=== PATIENT | female | born 1940 | race Caucasian/White ===

== ENCOUNTER 2019-02-21 06:36 | Inpatient (IN) | payer OTHER ==
[~2019-02-21] VITALS: Ht 160 cm; Wt 67.6 kg
[2019-02-21 06:43] VITALS: BP_SYST 160
[2019-02-21] MEDS ORDERED: ASPIRIN 81 MG TAB.CHEW PO ONE (07:00)
[2019-02-21] MEDS ORDERED: NITROGLYCERIN 0.4 MG TAB.SUBL SL ONE (07:00)
[2019-02-21] MEDS ORDERED: LISI-600 PO (07:03)
[2019-02-21] MEDS ORDERED: ALEN70TA3 PO (07:03)
[2019-02-21] MEDS ORDERED: VITA400C19 PO (07:03)
[2019-02-21] MEDS ORDERED: CALC200T47 PO (07:03)
[2019-02-21] MEDS ORDERED: AMLO2.5T2 PO (07:03)
[2019-02-21] MEDS ORDERED: VITD2000 PO (07:03)
[2019-02-21] MEDS ORDERED: HYDR25TA4 PO (07:03)
[2019-02-21 07:12] LABS: BASOPHILS # (AUTO) 0.1 K/uL (0.0-0.2); BASOPHILS % (AUTO) 0.5 % (0.0-2.0); EOSINOPHILS # (AUTO) 0.1 K/uL (0.0-0.4); EOSINOPHILS % (AUTO) 0.5 % (0.0-4.0); HEMATOCRIT 40.9 % (36-48); HEMOGLOBIN 13.6 g/dL (12.0-16.0); LYMPHOCYTES # (AUTO) 2.2 K/uL (1.0-5.5); LYMPHOCYTES % (AUTO) 18.8 % (20.5-51.5); MEAN CORPUSCULAR HEMOGLOBIN 30 pg (27-31); MEAN CORPUSCULAR HGB CONC 33 % (32-36); MEAN CORPUSCULAR VOLUME 89 fL (79.0-98.0); MONOCYTES # (AUTO) 1.1 K/uL (0.0-1.0); MONOCYTES % (AUTO) 9.2 % (1.7-9.3); NEUTROPHILS # (AUTO) 8.4 K/uL (1.8-7.7); PLATELET COUNT (AUTO) 253 K/uL (130-430); RED CELL DISTRIBUTION WIDTH 13.6 % (9.0-15.0); WHITE BLOOD COUNT (AUTO) 11.9 K/uL (4.8-10.8)
[2019-02-21 07:20] LABS: ANION GAP 10 (5-15); CALCIUM 9.7 mg/dL (8.4-11.0); CHLORIDE 101 mmol/L (98-107); GLUCOSE 114 mg/dL (70-99); SODIUM SERUM 137 mmol/L (136-145); UREA NITROGEN, BLOOD 27 mg/dL (8-21)
[2019-02-21 07:21] LABS: PROTHROMBIN TIME 9.8 SECS (9.5-12.5)
[2019-02-21 07:26] LABS: ALANINE AMINOTRANSFERASE 20 U/L (12-78); ASPARTATE AMINOTRANSFERASE 17 U/L (10-37); LIPASE 156 U/L (73-393); TOTAL BILIRUBIN 0.7 mg/dL (0.0-1.0)
[2019-02-21 07:29] LABS: POTASSIUM 2.9 mmol/L (3.5-5.1)
[2019-02-21] MEDS ORDERED: KCL 20 mEq in 100 mL (PREMIX) 100 ML IV ONE (08:00)
[2019-02-21] MEDS ORDERED: POTASSIUM CHLORIDE 10 MEQ TAB.PRT.SR PO ONE (08:00)
[2019-02-21 09:56] VITALS: BP_SYST 127
[2019-02-21] MEDS ORDERED: NITROGLYCERIN 0.4 MG TAB.SUBL SL PRN (12:30)
[2019-02-21] MEDS ORDERED: ALPRAZolam 0.25 MG TABLET PO ONE (13:08)
[2019-02-21] MEDS ORDERED: PANTOPRAZOLE GRANULES PACKET 40 MG GT ONE (13:15)
[2019-02-21] MEDS ORDERED: LISINOPRIL 20 MG TABLET PO ONE (13:15)
[2019-02-21] MEDS ORDERED: ENOXAPARIN SODIUM 40 MG/0.4 ML SYRINGE SUBCUT ONE (13:15)
[2019-02-21] MEDS ORDERED: NITROGLYCERIN 1 INCH (GM) OINT. TP ONE (13:15)
[2019-02-21] MEDS ORDERED: PANTOPRAZOLE SODIUM 40 MG/VIAL (PROTONIX) IVP ONE (14:00)
[2019-02-21 15:20] LABS: ANION GAP 10 (5-15); CALCIUM 8.7 mg/dL (8.4-11.0); CHLORIDE 105 mmol/L (98-107); CREATININE 1.07 mg/dL (0.55-1.30); GLUCOSE 107 mg/dL (70-99); POTASSIUM 3.7 mmol/L (3.5-5.1); SODIUM SERUM 141 mmol/L (136-145); UREA NITROGEN, BLOOD 20 mg/dL (8-21)
[2019-02-21 15:29] LABS: ALANINE AMINOTRANSFERASE 17 U/L (12-78); ALBUMIN 3.1 g/dL (3.4-4.8); ASPARTATE AMINOTRANSFERASE 16 U/L (10-37); TOTAL BILIRUBIN 0.5 mg/dL (0.0-1.0)
[2019-02-21 16:48] VITALS: BP_SYST 119
[2019-02-21] MEDS: NITROGLYCERIN 1 INCH (GM) OINT. TP SCH (18:07)
[2019-02-21 20:00] VITALS: BP_SYST 126
[2019-02-21] MEDS: ALPRAZolam 0.25 MG TABLET PO SCH (20:50)
[2019-02-21] MEDS: CALCIUM 500 MG/TAB PO SCH (20:50)
[2019-02-21] MEDS: PANTOPRAZOLE SODIUM 40 MG/VIAL (PROTONIX) IVP SCH (20:51)
[2019-02-21] MEDS: CHOLECALCIFEROL (VITAMIN D3) 2,000 UNIT TABLET PO SCH (20:51)
[2019-02-21] MEDS: ACETAMINOPHEN 325 MG TABLET PO PRN (20:52)
[2019-02-21] MEDS ORDERED: CALCIUM CITRATE 200 MG TABLET PO SCH (21:00)
[2019-02-21] MEDS ORDERED: PANTOPRAZOLE GRANULES PACKET 40 MG GT SCH (21:00)
[2019-02-22 00:08] VITALS: BP_SYST 105
[2019-02-22] MEDS: NITROGLYCERIN 1 INCH (GM) OINT. TP SCH ×4 (00:12→18:00)
[2019-02-22 06:40] LABS: BASOPHILS % (AUTO) 0.5 % (0.0-2.0); EOSINOPHILS # (AUTO) 0.1 K/uL (0.0-0.4); EOSINOPHILS % (AUTO) 0.7 % (0.0-4.0); HEMATOCRIT 37.5 % (36-48); HEMOGLOBIN 12.4 g/dL (12.0-16.0); LYMPHOCYTES # (AUTO) 1.3 K/uL (1.0-5.5); MEAN CORPUSCULAR HEMOGLOBIN 30 pg (27-31); MEAN CORPUSCULAR HGB CONC 33 % (32-36); MEAN CORPUSCULAR VOLUME 90 fL (79.0-98.0); MONOCYTES # (AUTO) 0.9 K/uL (0.0-1.0); MONOCYTES % (AUTO) 10.6 % (1.7-9.3); NEUTROPHILS # (AUTO) 5.8 K/uL (1.8-7.7); NEUTROPHILS % (AUTO) 72.2 % (40.0-70.0); PLATELET COUNT (AUTO) 193 K/uL (130-430); RED BLOOD CELL COUNT(AUTO) 4.17 MIL/uL (4.2-6.2); RED CELL DISTRIBUTION WIDTH 13.4 % (9.0-15.0)
[2019-02-22 06:41] LABS: ANION GAP 9 (5-15); CHLORIDE 107 mmol/L (98-107); CREATININE 1.02 mg/dL (0.55-1.30); GLUCOSE 111 mg/dL (70-99); POTASSIUM 3.6 mmol/L (3.5-5.1); SODIUM SERUM 139 mmol/L (136-145); UREA NITROGEN, BLOOD 19 mg/dL (8-21)
[2019-02-22] MEDS: ACETAMINOPHEN 325 MG TABLET PO PRN (06:44)
[2019-02-22 08:53] VITALS: BP_SYST 105
[2019-02-22] MEDS: PANTOPRAZOLE SODIUM 40 MG/VIAL (PROTONIX) IVP SCH (08:56)
[2019-02-22] MEDS: CHOLECALCIFEROL (VITAMIN D3) 2,000 UNIT TABLET PO SCH (08:59)
[2019-02-22] MEDS ORDERED: LISINOPRIL 20 MG TABLET PO SCH (09:00)
[2019-02-22] MEDS ORDERED: amLODIPine BESYLATE 5 MG TABLET PO SCH (09:00)
[2019-02-22] MEDS: ALPRAZolam 0.25 MG TABLET PO SCH (09:00)
[2019-02-22] MEDS ORDERED: ENOXAPARIN SODIUM 40 MG/0.4 ML SYRINGE SUBCUT SCH (09:00)
[2019-02-22] MEDS: CALCIUM 500 MG/TAB PO SCH (09:00)
[2019-02-22] MEDS ORDERED: HYDROCHLOROTHIAZIDE 25 MG TABLET (HCTZ) PO SCH (09:00)
[2019-02-22 12:00] VITALS: BP_SYST 99
[2019-02-22] MEDS ORDERED: ACET-73 PO (16:06)
[2019-02-22 16:15] VITALS: BP_SYST 100
[2019-02-22 16:19] VITALS: BP_SYST 99
== END 2019-02-22 18:37 | disposition home or self-care (01) | DRG 206 ==
LOC: SED 06:36 → STU 08:58
PROVIDERS: ADMIT Family Medicine; ATTEND Family Medicine
DX: M94.0 Chondrocostal junction syndrome [Tietze] (principal); K80.20 Calculus of gallbladder without cholecystitis without obstruction; G89.29 Other chronic pain; I10 Essential (primary) hypertension; E87.6 Hypokalemia; I25.10 Atherosclerotic heart disease of native coronary artery without angina pectoris; F32.9 Major depressive disorder, single episode, unspecified; Z87.891 Personal history of nicotine dependence; Z88.1 Allergy status to other antibiotic agents; Z88.8 Allergy status to other drugs, medicaments and biological substances; Z79.899 Other long term (current) drug therapy; Z88.6 Allergy status to analgesic agent
CPT/HCPCS: 36415; 71045; 76700-TC; 80048; 80053; 82550-TC; 83690-TC; 83880; 84484; 85025; 85379; 85610-TC; 85730-TC; 93306; 96361; 96365; 99285; C9113; G0378; J1650; J3480